=== PATIENT | male | born 1930 | race Two or more races ===

== ENCOUNTER 2021-07-26 19:18 | Emergency (ER) | payer MEDICARE ==
[~2021-07-26] VITALS: Ht 167.6 cm; Wt 72.6 kg
--- NOTE | 2021-07-26 19:30 | NUR ---
PT [facility]IB[facility] 89 FROM HOME C/O WITNESSED SYNCOPAL EPIDSODE. PT WAS ASSISTED TO FLOOR. -INJURY OR TRAUMA AND PT AT BASELINE MENTATION. CHANGED INTO A GOWN AND PLACED ON MONITOR AND ALL V/S STABLE.
--- NOTE | 2021-07-26 22:32 | NUR ---
Patient discharged to home in stable condition. Written and verbal after care instructions given. Patient verbalizes understanding of instruction.
[2021-07-26 22:33] VITALS: BP 134/66
== END 2021-07-26 22:33 | disposition home or self-care (01) ==
LOC: ER 19:22
DX: R55 Syncope and collapse (principal); F03.90 Unspecified dementia, unspecified severity, without behavioral disturbance, psychotic disturbance, mood disturbance, and anxiety; I10 Essential (primary) hypertension
CPT/HCPCS: 70450-TC; 71045-TC